=== PATIENT | male | born 1965 | race Caucasian/White ===

== ENCOUNTER → 2022-09-06 | Outpatient (CLI) | payer BC ==
[2022-09-14 03:06] LABS: ASPERGILLUS FLAVUS ABY Negative (Neg:<1:1); ASPERGILLUS FUMIGATUS ABY Negative (Neg:<1:1); ASPERGILLUS GALACTOMANNAN AG 0.08 Index (0.00-0.49); ASPERGILLUS NIGER ABY Negative (Neg:<1:1); CRYPTOCOCCUS ANTIBODY SERUM Negative (Neg:<1:2); CRYPTOCOCCUS ANTIGEN SER Negative (Negative)
== END ==
LOC: M PLALAB 11:45
PROVIDERS: ATTEND Internal Medicine Infectious Disease
DX: R91.8 Other nonspecific abnormal finding of lung field (principal); G06.1 Intraspinal abscess and granuloma

== ENCOUNTER 2022-09-15 16:20 | Inpatient (IN) | payer BC ==
[~2022-09-15] VITALS: Ht 170.2 cm; Wt 54.3 kg
[2022-09-15 17:21] LABS: BASO % 0.6 % (0.0-1.0); EOS % 0.6 % (0.0-3.0); HEMOGLOBIN 9.3 g/dl (13.5-17.5); LYMPH # 0.7 10^3/uL (1.5-5.0); LYMPH % 11.2 % (24.0-44.0); MEAN CORPUSCULAR HEMOGLOBIN 29.6 pg (27.0-33.0); MEAN CORPUSCULAR HGB CONC 33.2 g/dl (32.0-36.5); MEAN CORPUSCULAR VOLUME 89.2 fl (80.0-96.0); MONO # 0.8 10^3/uL (0.0-0.8); MONO % 11.4 % (2.0-8.0); NEUTROPHILS % 75.7 % (36.0-66.0); PLATELET COUNT, AUTOMATED 680 10^3/uL (150-450); RED BLOOD COUNT 3.14 10^6/uL (4.30-6.10); WHITE BLOOD COUNT 6.6 10^3/uL (4.0-10.0)
[2022-09-15] MEDS ORDERED: ACETAMINOPHEN 325 MG/10.15 ML UDC PEG ONE (17:45)
[2022-09-15 17:49] LABS: CK-MB VALUE MASS < 1.0 NG/ML (<3.6)
[2022-09-15 17:50] LABS: BILIRUBIN,DIRECT < 0.1 MG/DL (<0.4)
[2022-09-15 18:10] LABS: ALBUMIN 3.5 G/DL (3.2-5.2); ALKALINE PHOSPHATASE 70 U/L (46-116); ALT/SGPT 13 U/L (7.0-40); AST/SGOT 23 U/L (<34); BILIRUBIN,TOTAL 0.2 MG/DL (0.3-1.2); BLOOD UREA NITROGEN 20 MG/DL (9-23); CALCIUM LEVEL 9.8 MG/DL (8.5-10.1); CARBON DIOXIDE LEVEL 27 MMOL/L (20-31); CHLORIDE LEVEL 98 MMOL/L (98-107); CPK CREATINE PHOSPHOKINASE 36 U/L (46-171); CREATININE FOR GFR 1.04 MG/DL (0.70-1.30); GLOMERULAR FILTRATION RATE > 60.0 (>56); GLUCOSE, FASTING 137 MG/DL (60-100); MB/CK RELATIVE INDEX 2.77 (< OR =4); POTASSIUM SERUM 4.5 MMOL/L (3.5-5.1); SODIUM LEVEL 136 MMOL/L (136-145); TOTAL PROTEIN 7.3 G/DL (5.7-8.2)
[2022-09-15] MEDS ORDERED: ISOVUE-370 76% 100ML VIAL As Ordered ONE (18:34)
[2022-09-15] MEDS ORDERED: PIPERACILLIN/TAZOBACTAM SOD 3.375 GM in D5W MINI-BAG PLUS 50 ML IV ONE (19:15)
[2022-09-15] MEDS ORDERED: IBUP200T46 PO (19:44)
[2022-09-15] MEDS ORDERED: ALPR0.25 PO (19:44)
[2022-09-15] MEDS ORDERED: ACET500T15 PO (19:44)
[2022-09-15] MEDS ORDERED: OXYC1CAP PO (19:44)
[2022-09-15] MEDS ORDERED: FLUC200T4 PO (19:44)
[2022-09-15] MEDS ORDERED: ONDA4TAB6 PO (19:44)
[2022-09-15] MEDS ORDERED: TIZA10TA PO (19:44)
[2022-09-15] MEDS ORDERED: HOME MED LIST COMPLETE! XX SCH (19:45)
[2022-09-15 20:23] LABS: PROTHROMBIN TIME 13.4 SECONDS (12.5-14.5)
[2022-09-15] MEDS ORDERED: ALPRAZolam 0.25 MG TAB PO PRN (20:40)
[2022-09-15] MEDS ORDERED: oxyCODONE 5MG TAB PO PRN (20:40)
[2022-09-15] MEDS ORDERED: ONDANSETRON 4MG ORAL DISINTEGRATING TAB PO PRN (20:40)
[2022-09-15] MEDS ORDERED: ACET1TAB55 PO (20:52)
[2022-09-15] MEDS ORDERED: tiZANidine 4 MG TAB PO SCH (21:00)
[2022-09-15] MEDS: ACETAMINOPHEN TAB 650MG DOSE (2X325MG) PO SCH (22:27)
[2022-09-16] MEDS: ACETAMINOPHEN TAB 650MG DOSE (2X325MG) PO SCH ×4 (01:00→14:04)
[2022-09-16] MEDS: PIPERACILLIN/TAZOBACTAM SOD 3.375 GM in D5W MINI-BAG PLUS 50 ML IV SCH ×2 (01:18→08:50)
[2022-09-16] MEDS: IBUPROFEN 200MG TAB PO SCH ×2 (05:13)
[2022-09-16 06:57] LABS: BASO # 0.1 10^3/uL (0.0-0.2); BASO % 0.8 % (0.0-1.0); EOS # 0.1 10^3/uL (0.0-0.5); EOS % 1.6 % (0.0-3.0); HEMATOCRIT 25.9 % (42.0-52.0); HEMOGLOBIN 8.8 g/dl (13.5-17.5); LYMPH # 0.9 10^3/uL (1.5-5.0); LYMPH % 15.1 % (24.0-44.0); MEAN CORPUSCULAR HEMOGLOBIN 30.3 pg (27.0-33.0); MEAN CORPUSCULAR VOLUME 89.3 fl (80.0-96.0); MONO # 0.8 10^3/uL (0.0-0.8); MONO % 12.9 % (2.0-8.0); NEUTROPHILS # 4.3 10^3/uL (1.5-8.5); NEUTROPHILS % 69.3 % (36.0-66.0); PLATELET COUNT, AUTOMATED 606 10^3/uL (150-450); WHITE BLOOD COUNT 6.2 10^3/uL (4.0-10.0)
[2022-09-16] MEDS ORDERED: PANTOPRAZOLE 20 MG TAB PO ONE (07:00)
[2022-09-16 07:23] LABS: BLOOD UREA NITROGEN 17 MG/DL (9-23); CALCIUM LEVEL 9.6 MG/DL (8.5-10.1); CARBON DIOXIDE LEVEL 30 MMOL/L (20-31); CHLORIDE LEVEL 99 MMOL/L (98-107); CREATININE FOR GFR 1.03 MG/DL (0.70-1.30); GLOMERULAR FILTRATION RATE > 60.0 (>56); GLUCOSE, FASTING 86 MG/DL (60-100); POTASSIUM SERUM 4.4 MMOL/L (3.5-5.1); SODIUM LEVEL 136 MMOL/L (136-145)
[2022-09-16 07:24] LABS: FREE T4 0.81 NG/DL (0.89-1.76)
[2022-09-16] MEDS ORDERED: ALPRAZolam 0.25 MG TAB PO ONE (08:30)
[2022-09-16 08:49] VITALS: BP 120/70
[2022-09-16] MEDS: IBUPROFEN 400MG TAB PO SCH ×2 (08:49→14:15)
[2022-09-16] MEDS ORDERED: ENOXAPARIN 40MG/0.4ML SYRINGE (J1650 PER 10MG) SC SCH (09:00)
[2022-09-16 10:52] LABS: LDH LACTATE DEHYDROGENASE 137 U/L (120-246)
[2022-09-16 10:54] LABS: ERYTHROCYTE SEDIMENTATION RATE > 140 mm/hr (0-20)
[2022-09-16 12:02] LABS: LDH LACTATE DEHYDROGENASE 145 U/L (120-246)
[2022-09-16 15:09] LABS: THYROID PEROXIDASE ANTIBODY < 28.0 U/ML (<60.0)
[2022-09-16] MEDS ORDERED: LEVO750T14 PO (15:22)
== END 2022-09-16 17:34 | disposition home or self-care (01) | DRG 144 ==
LOC: M ED 16:20 → M ED INP 20:12 → ENRESERV 09-16 11:46 → M MSPAV 09-16 14:18
PROVIDERS: ADMIT Family Medicine; ATTEND Internal Medicine
DX: R91.8 Other nonspecific abnormal finding of lung field (principal); Z93.0 Tracheostomy status; M87.38 Other secondary osteonecrosis, other site; Z85.818 Personal history of malignant neoplasm of other sites of lip, oral cavity, and pharynx; Z92.21 Personal history of antineoplastic chemotherapy; Z92.3 Personal history of irradiation; D64.9 Anemia, unspecified; M54.50 Low back pain, unspecified; M54.2 Cervicalgia; F41.9 Anxiety disorder, unspecified; Z79.899 Other long term (current) drug therapy; Z87.891 Personal history of nicotine dependence

== ENCOUNTER → 2022-09-23 | Outpatient (CLI) | payer BC ==
[~2022-09-23] MED LIST: ACET1TAB55 PO; ACET500T15 PO; ALPR0.25 PO; FLUC200T4 PO; IBUP200T46 PO; LEVO750T14 PO; ONDA4TAB6 PO; OXYC1CAP PO; TIZA10TA PO
== END ==
LOC: M CARPUL 13:59
PROVIDERS: ATTEND Internal Medicine Infectious Disease
DX: I45.10 Unspecified right bundle-branch block (principal); R50.9 Fever, unspecified